=== PATIENT | female | born 1945 | race Hispanic/Latino ===

== ENCOUNTER 2017-04-24 07:56 | Day surgery (SDC) | payer MEDICARE, OTHER ==
--- NOTE | 2017-04-24 10:49 | Short Stay Summary ---
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 - History Principal diagnosis: left thyroid nodule H&P: obtained from office - Allergies and Medications Current Medications: Allergies escitalopram [From Lexapro] Allergy (Severe, Verified 04/24/17 08:52) Seizure fluoxetine [From Prozac] Allergy (Severe, Verified 04/24/17 08:35) Angioedema meperidine [From Demerol] Allergy (Severe, Verified 04/24/17 08:29) Shortness of Breath methylprednisolone [From Medrol] Allergy (Severe, Verified 04/24/17 08:51) Shortness of Breath nifedipine [From Procardia] Allergy (Severe, Verified 04/24/17 08:33) Shortness of Breath acetaminophen [From Darvocet-N] Allergy (Intermediate, Verified 04/24/17 08:34) Itching alendronate sodium [From Fosamax] Allergy (Intermediate, Verified 04/24/17 08:37 ) Headache amoxicillin [From Augmentin] Allergy (Intermediate, Verified 04/24/17 08:41) Dizziness atenolol [From Tenormin] Allergy (Intermediate, Verified 04/24/17 08:35) Unknown clavulanic acid [From Augmentin] Allergy (Intermediate, Verified 04/24/17 08:41) Dizziness clindamycin Allergy (Intermediate, Verified 04/24/17 08:45) Diarrhea codeine Allergy (Intermediate, Verified 04/24/17 08:30) Itching doxycycline Allergy (Intermediate, Verified 04/24/17 08:46) Nausea guaifenesin [From Mucinex] Allergy (Intermediate, Verified 04/24/17 08:42) Dizziness lansoprazole [From Prevacid] Allergy (Intermediate, Verified 04/24/17 08:36) Unknown levothyroxine Allergy (Intermediate, Verified 04/24/17 08:50) Headache morphine Allergy (Intermediate, Verified 04/24/17 08:30) Itching nitrofurantoin [From Macrobid] Allergy (Intermediate, Verified 04/24/17 08:40) Vomiting propoxyphene [From Darvocet-N] Allergy (Intermediate, Verified 04/24/17 08:34) Itching thyroid, pork [From [place] Thyroid] Allergy (Intermediate, Verified 04/24/17 08: 50) Vomiting valdecoxib [From Bextra] Allergy (Intermediate, Verified 04/24/17 08:37) Headache erythromycin base Allergy (Verified 04/24/17 08:44) Vomiting pravastatin Allergy (Verified 04/24/17 08:43) Dizziness cortizone Allergy (Intermediate, Uncoded 04/24/17 08:39) Headache epidural injection Allergy (Intermediate, Uncoded 04/24/17 08:41) Unknown actanol Allergy (Uncoded 04/24/17 08:38) Swelling Home Medications Medication Instructions Recorded Confirmed Last Taken Type ALPRAZolam [Xanax TAB] 0.5 tab PO PRN PRN 04/24/17 04/24/17 1 Month Ago History ~03/25/17 Aspirin EC [Aspirin Enteric Coated 81 mg PO QDAY 04/24/17 04/24/17 04/23/17 History TAB] Calcium Citrate/Vitamin D3 1 each PO QDAY 04/24/17 04/24/17 04/23/17 History [Calcitrate + Vit D Caplet] Cyanocobalamin [Vitamin B-12] 1,000 mcg IM QMONTH 04/24/17 04/24/17 04/15/17 History Estradiol [Vagifem] 10 mcg VG 2XW 04/24/17 04/24/17 04/22/17 History Estrogens, Conjugated [Premarin] 0.625 mg PO QDAY 04/24/17 04/24/17 04/23/17 History Ferrous Sulfate [Slow Fe] 142 mg PO QDAY 04/24/17 04/24/17 04/23/17 History Multivitamin/Iron/Folic Acid 1 each PO QDAY 04/24/17 04/24/17 04/23/17 History [Centrum Adults Tablet] Valsartan [Diovan] 80 mg PO QDAY 04/24/17 04/24/17 04/24/17 06:30 History - Physical exam General appearance: no acute distress HEENT: Atraumatic, PERRLA, Other (no obvious thyroid abnl on exam) - Brief post op/procedure progress note Date of procedure: 04/24/17 Pre-op diagnosis: left thyroid nodule Post-op diagnosis: same Procedure: US thyroid FNA Anesthesia: local Findings: see report Surgeon: JENNIFER BENJAMIN Estimated blood loss: none Pathology: list (FNA x 2) Specimen disposition: to lab Condition: stable - Disposition Condition at discharge: Good Disposition: [id number] TO HOME OR SELFCARE
--- NOTE | 2017-04-24 11:48 | Ultrasound Report ---
ULTRASOUND BIOPSY THYROID History: Left thyroid nodule, Marilee's thyroiditis. Description of procedure: Informed consent was obtained. Sterile technique was utilized. 1% lidocaine for skin anesthesia. Using ultrasound guidance, 2 fine needle aspirations were obtained from a well-circumscribed nodule at the inferior pole of the left thyroid lobe measuring 1.8 x 1.0 x 1.2 cm. The samples were deemed adequate by the pathologist on site. No complications. Impression: Successful ultrasound guided fine needle aspiration of the left thyroid nodule as described.
[2017-04-24 11:57] VITALS: BP 160/85
== END 2017-04-24 12:01 | disposition home or self-care (01) ==
LOC: CATHLABREC 07:56 → EDSTATUS 09:00 → CATHLABREC 12:01
PROVIDERS: ATTEND Internal Medicine Endocrinology, Diabetes & Metabolism
DX: E04.1 Nontoxic single thyroid nodule (principal); E06.3 Autoimmune thyroiditis; Z88.5 Allergy status to narcotic agent; Z88.1 Allergy status to other antibiotic agents; Z88.8 Allergy status to other drugs, medicaments and biological substances; Z88.6 Allergy status to analgesic agent; Z79.82 Long term (current) use of aspirin; Z79.899 Other long term (current) drug therapy
CPT/HCPCS: 10022; 60100; 76942; 88112; 88172; 88173; 88305